=== PATIENT | male | born 1960 | race African-American/Black ===

== ENCOUNTER 2016-06-26 14:15 | Emergency (ER) | payer OTHER ==
[2016-06-26 14:34] LABS: BASOPHILS % 0.5 (0.0-1.5); EOSINOPHILS % 2.4 % (0.0-6.8); MEAN CORPUSCULAR HEMOGLOBIN 31.5 pg (28.0-34.0); MEAN CORPUSCULAR VOLUME 99.4 fl (80.0-100.0)
[2016-06-26 14:45] LABS: eGFR (African) > 60; eGFR (Non-African) > 60
--- NOTE | 2016-06-26 16:19 | ED Physician Documentation ---
Seizure - HISTORIAN Historian: patient - HPI Stated Complaint: ? Seizure Chief Complaint: Seizure Timing/Onset/Duration: multiple episodes (2 seizures repaorted ot BCC , ? two seiures in route) Last known Well Date: 06/26/16 Last Known Well Time: 14:00 Last known Well Code/Unknown Code: Known Witnessed By: bystander Preceding Symptoms: none Character of Seizure(s): lost consciousness, "shaking all over" (mild tremors). denies: incontinence of urine, incontinence of stool Postictal Symptoms: other (fatique) Location of Injury: none Further Comments: yes (Patient has a hx of seizures since 7 yo. Has 4-5 seizures a year. Las one was about 3 months ago. Stress seems to be a participating factor. Patient has recently transferred to [facility], [place] and hs is feeling stress with adjustment of new environment. Seizure witness by nursing staff. Is on Keppra last blood level was therapeutic in April.) - ROS NEURO/PSYCH: denies: headache, fainting EYES/ENT: none CVS/RESP: none - PAST HX Previous seizure/seizure disorder: since childhood Etiology: other Other History: none Surgeries/Procedures: none Immunizations: UTD Allergies/Adverse Reactions: Allergies Allergy/AdvReac Type Severity Reaction Status Date / Time No Known Allergies Allergy Unverified 06/26/16 14:28 Home Medications: Ambulatory Orders Medication Instructions Recorded Aspirin [Vasquez] 325 mg PO DAILY 06/26/16 Atorvastatin Calcium 40 mg PO DAILY 06/26/16 Levetiracetam [Keppra] 500 mg PO BID 06/26/16 Topiramate [Topamax] 100 mg PO BID 06/26/16 - SOCIAL HX Smoking History: less than 1 pack/day Alcohol Use: none Drug Use: none - FAMILY HX Family History: none - VITAL SIGNS Vital Signs: Vital Signs Temp Pulse Resp BP Pulse Ox 97 F L 68 18 117/71 97 06/26/16 14:15 06/26/16 14:15 06/26/16 14:15 06/26/16 14:15 06/26/16 14:15 - REVIEWED ASSESSMENTS Nursing Assessment Reviewed: Yes Vitals Reviewed: Yes ED Results Lab/Radiology - Lab Results Lab Results: Lab Results 06/26/16 06/26/16 14:25 14:25 WBC 7.50 K/ul K/ul (4.00-12.00) RBC 3.94 M/ul M/ul (3.90-5.20) Hgb 12.4 g/dL g/dL (12.0-18.0) Hct 39.1 % % (37.0-53.0) MCV 99.4 fl fl (80.0-100.0) MCH 31.5 pg pg (28.0-34.0) MCHC 31.7 g/dL g/dL (30.0-36.0) RDW 12.5 % % (11.3-14.3) Plt Count 115 K/mm3 L K/mm3 (130-400) Neut % (Auto) 52.5 % % (39.0-79.0) Lymph % (Auto) 37.6 % % (16.0-50.0) Warren % (Auto) 5.0 % % (0.0-11.0) Eos % (Auto) 2.4 % % (0.0-6.8) Baso % (Auto) 0.5 (0.0-1.5) Neut # 4.0 # k/uL # k/uL (1.4-7.7) Lymph # 2.8 # k/uL # k/uL (0.6-4.0) Warren # 0.4 # k/uL # k/uL (0.0-0.9) Eos # 0.2 # k/uL # k/uL (0.0-0.6) Baso # 0.0 # k/uL # k/uL (0.0-0.5) Reactive Lymphs % 2.1 % % (0.0-5.0) Reactive Lymphs # 0.2 # k/uL # k/uL (0.0-0.8) Sodium 143 mmol/L mmol/L (136-145) Potassium 3.7 mmol/L mmol/L (3.5-5.0) Chloride 110 mmol/L mmol/L (98-110) Carbon Dioxide 25 mmol/L mmol/L (20-32) BUN 15 mg/dL mg/dL (10-26) Creatinine 0.9 mg/dL mg/dL (0.4-1.5) Estimated Creat Clear 146 Est GFR ( Amer) > 60 (60 - ) Est GFR (Non-Af Amer) > 60 (60 - ) Glucose 92 mg/dL mg/dL (70-99) Calcium 9.6 mg/dL mg/dL (8.5-10.5) Total Bilirubin 0.3 mg/dL mg/dL (0.2-1.2) AST 18 U/L U/L (0-41) ALT 17 U/L U/L (0-45) Alkaline Phosphatase 82 U/L U/L (46-116) Total Protein 7.0 g/dL g/dL (6.0-8.5) Albumin 4.2 g/dL g/dL (3.0-5.5) - Orders Orders: ED Orders Category Date Time Status Place Saline Lock/IV Now Care 06/26/16 14:[address] BRAIN W/O CONTRAST Stat Exams 06/26/16 Taken CBC/PLATELET/DIFF Routine Lab 06/26/16 14:25 Completed CMP Routine Lab 06/26/16 14:25 Completed LEVETIRACETAM(KEPPRA) LEVEL Stat Lab 06/26/16 14:25 Received TOPIRAMATE LEVEL Stat Lab 06/26/16 14:25 Received Seizure Physical Exam - Physical Exam General Appearance: no acute distress, lethargic (mild). No: alert Altered Mental Status Higher Functions: oriented x3, no evidence of acute CVA, mood/affect nml, eyes open EENT: nml eye inspection, PERRL. No: abnml fundi Neck/Back: normal inspection, thyroid normal, supple. No: lymphadenopathy, stiff neck Respiratory: no resp. distress, breath sounds nml, no evidence of rib injury. No: wheezes, rales, rhonchi CVS: reg rate & rhythm, heart sounds normal, equal pulses, no murmur, no gallop Abdomen: non-tender, no organomegaly, nml bowel sounds, no distention Skin: warm/dry, normal color Extremities: normal range of motion, non-tender Observed Seizure Activity in ED: other (none) - Nexus Criteria Neg Nexus Criteria: Nexus criteria neg Discharge Clincal Impression: Seizure disorder Additional Instructions: Patient needs to be where he can be observed for the next 24 hours. Continue with present meds. If any further problems to return to the ED. Home Medications: Ambulatory Orders Aspirin [Vasquez] 325 mg PO DAILY 06/26/16 Atorvastatin Calcium 40 mg PO DAILY 06/26/16 Levetiracetam [Keppra] 500 mg PO BID 06/26/16 Topiramate [Topamax] 100 mg PO BID 06/26/16 Condition: Stable Disposition: 01 HOME, SELF-CARE Decision to Admit: NO Date of Decison to Admit: 06/26/16 Decision Time: 16:25
[2016-06-26 18:30] VITALS: BP 120/64
--- NOTE | 2016-06-26 18:43 | Diagnostic Imaging Report ---
SAMANTHA HOYOS~ [facility] [address] [facility] [address] [place], [place]. [address] ~ ~ ~ ~ Report Submission Date: June 26, 2016 3:15:46 PM CDT Patient ~ Study Name: MALCOLM UNGER ~ Date: June 26, 2016 2:50:23 PM CDT ~ Modality Type: CT\SR Gender: M ~ Description: CT BRAIN W/O CONTRAST : 64 ~ Institution: [facility] Physician: SAMANTHA HOYOS ~ ~ ~ ~ HISTORY: ~55-year-old male with multiple seizures. COMPARISON: None available. TECHNIQUE: Noncontrast axial CT images of the head were performed. FINDINGS: No intracranial hemorrhage, mass, midline shift, hydrocephalus, or evidence of acute large vessel infarct. ~The mastoid air cells, middle ear spaces, and partially visualized paranasal sinuses are clear. ~There is an old fracture of the right orbital medial wall with medial displacement. There is adenoid tonsillar hypertrophy. IMPRESSION: 1. ~No acute intracranial process identified. 2. ~Old fracture of the right orbital medial wall. ~ Electronically signed on June 26, 2016 3:15:46 PM CDT by: Jaswant SMALLWOOD
== END 2016-06-26 16:34 | disposition home or self-care (01) ==
LOC: ED 14:15
DX: G40.909 Epilepsy, unspecified, not intractable, without status epilepticus (principal)
CPT/HCPCS: 70450; 80053; 80177; 80201; 85025; 99283

== ENCOUNTER 2016-07-28 05:29 | Emergency (ER) | payer OTHER ==
[2016-07-28 06:15] LABS: BASOPHILS % 0.2 (0.0-1.5); MEAN CORPUSCULAR VOLUME 97.2 fl (80.0-100.0); MONOCYTES % 3.5 % (0.0-11.0); NEUTROPHILS # 8.4 # k/uL (1.4-7.7)
[2016-07-28] MEDS ORDERED: PHARMACY KEY 1 EACH EACH MC ONE (06:21)
[2016-07-28 06:26] LABS: eGFR (African) > 60; eGFR (Non-African) > 60
[2016-07-28] MEDS ORDERED: levETIRAcetam 500 MG TABLET PO ONE (06:30)
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
[2016-07-28 07:03] VITALS: BP 112/62
[2016-07-28] MEDS ORDERED: TOPIRAMATE 50 MG TABLET PO SCH (09:00)
[2016-07-28] MEDS ORDERED: levETIRAcetam 500 MG TABLET PO SCH (09:00)
== END 2016-07-28 06:55 | disposition home or self-care (01) ==
LOC: ED 05:29
DX: G40.909 Epilepsy, unspecified, not intractable, without status epilepticus (principal)
CPT/HCPCS: 71020; 80053; 85025; J3490; 99283